=== PATIENT | female | born 1995 | race African-American/Black ===

== ENCOUNTER 2017-07-03 03:04 | Emergency (ER) | payer BC, MEDICAID ==
[2017-07-03 03:39] VITALS: BP 119/69
[2017-07-03] MEDS ORDERED: DIPHENHYDRAMINE HCL 25 MG/10 ML UDC PO ONE (04:27)
--- NOTE | 2017-07-03 04:30 | ER Document Report ---
HPI - HPI Pain Level: 4 Context: Patient is a 21-year-old female presents emergency department the chief complaint of sore throat for the past 2 weeks. Patient admits to sinus congestion, runny nose, nonproductive cough and sore throat. Patient states that she has not had any fevers or chills. Recent surgical history significant for tonsils and adenoids in January of this past year she is able to tolerate fluids without difficulty. Patient states that she has pain with solid foods but otherwise denies any nausea or vomiting - CONSTITUTIONAL Constitutional: DENIES: Fever, Chills - EENT EENT: REPORTS: Sore Throat - REPRODUCTIVE Reproductive: DENIES: : Past Medical History - Social History Smoking Status: Unknown if Ever Smoked Family History: None - mother states none Patient has suicidal ideation: No Patient has homicidal ideation: No Renal/ Medical History: Denies: Hx Peritoneal Dialysis Past Surgical History: Reports: Hx Tonsillectomy - Immunizations Immunizations up to date: Yes Hx Diphtheria, Pertussis, Tetanus Vaccination: Yes Vertical Provider Document - CONSTITUTIONAL Agree With Documented VS: Yes Notes: PHYSICAL EXAM GENERAL: Alert, interacts well. HEENT: NCAT, pale conjunctiva, extraocular movements intact, pupils PERRL. external ear normal, no evidence of external auditory canal tenderness, blood/ drainage, cerumen impaction, TM intact without evidence of effusion, bulging, injection, MMM, Uvula midline. Airway patent. No evidence of pharyngeal erythema retropharyngeal abscess. LUNGS: Clear to auscultation bilaterally, no wheezes, rales, or rhonchi. No respiratory distress. HEART: Regular rate and rhythm. No murmurs, gallops, or rubs. NEUROLOGICAL: Alert and oriented x4. Normal speech. PSYCH: Normal affect, normal mood. SKIN: Warm, dry, normal turgor. No rashes or lesions noted. - INFECTION CONTROL TRAVEL OUTSIDE OF THE [place] IN LAST 30 DAYS: No Course - Re-evaluation Re-evalutation: 07/03/17 04:27 Patient is a 21-year-old female is hemodynamically stable, no acute distress afebrile. The rapid strep ordered in triage is negative. Patient's presentation is consistent with allergic rhinitis with underlying postnasal drip. Patient is overall well appearance, vitals within normal limits, well- hydrated. Patient denies any headache, neck pain, and has no evidence of meningismus on examination. Lungs are clear bilaterally. No evidence of respiratory distress. Based on clinical exam and history, I do not suspect an acute pneumonia, meningitis, strep pharyngitis, or an acute encephalitis. No laboratory or imaging testing is indicated at this time. Will discharge patient with return precautions and followup recommendations. They are in agreement this plan have verbalized understanding return precautions. - Vital Signs Vital signs: Temp Pulse Resp BP Pulse Ox 98.4 F 80 20 119/69 100 07/03/17 03:38 07/03/17 03:38 07/03/17 03:38 07/03/17 03:38 07/03/17 03:38 Discharge - Discharge Clinical Impression: Post-nasal drainage Condition: Good Disposition: HOME, SELF-CARE Additional Instructions: Your symptoms are most likely due to post nasal drip related to allergies. Please start taking the antihistamine you will be discharged with. For nasal congestion: I would recommend that you get [id number] oxymetazoline also known is afrin. Use only per bottle instructions and be sure to never use this for more than 3 days if you can develop severe rebound congestion. You may also use tylenol or ibuprofen as needed for aches and throat discomfort. Please be sure to drink plenty of fluids and get rest. Return to the emergency department he began having difficulty breathing, chest pain, persistent vomiting, or any other symptoms that are concerning to you. Prescriptions: Cetirizine HCl/Pseudoephedrine [Zyrtec-D 12 Hour Tablet] 1 tab.sr PO Q12 #60 tab.sr Forms: Parent Work Note, Return to Work Referrals: JAKE AVENDANO MD [COMMUNITY BASED STAFF] - Follow up as needed
== END 2017-07-03 04:40 | disposition home or self-care (01) ==
LOC: ER 03:04
DX: R09.82 Postnasal drip (principal); J02.9 Acute pharyngitis, unspecified; R05 Cough
CPT/HCPCS: 99283; 87070; 87880; J3490